=== PATIENT | male | born 1985 | race Caucasian/White ===

== ENCOUNTER 2017-06-10 08:00 | Outpatient (CLI) | payer OTHER | END 2017-06-10 08:01 | disposition home or self-care (01) | LOC: LAB.WCP 08:00 | PROVIDERS: ATTEND Family Medicine | DX: B08.4 Enteroviral vesicular stomatitis with exanthem (principal) | CPT/HCPCS: 36415; 87070; 87205 ==

== ENCOUNTER 2019-12-28 14:43 | Outpatient (CLI) | payer BC, OTHER ==
--- NOTE | 2019-12-28 14:46 | XRAY Report ---
PROCEDURE: Foot 3 View LT INDICATIONS: LEFT FOOT PAIN TECHNIQUE: 3 views of the foot were acquired. COMPARISON: None FINDINGS: Bones: No fractures or dislocations. No suspicious bony lesions. Soft tissues: No tibiotalar joint effusion. Achilles tendon appears normal. IMPRESSION: There is a small plantar fascial insertion spur at the posterior calcaneus noted on the lateral view. No fracture, stress reaction, or soft tissue inflammation is seen. Reviewed by: Darrin Quan MD on 12/28/2019 2:45 PM PDT Approved by: Darrin Quan MD on 12/28/2019 2:45 PM PDT Station ID: [id number]
== END 2019-12-28 23:59 | disposition home or self-care (01) ==
LOC: DI.WCP 14:43
PROVIDERS: ATTEND Family Medicine
DX: M77.32 Calcaneal spur, left foot (principal)